=== PATIENT | male | born 1990 | race Caucasian/White ===

== ENCOUNTER 2021-06-06 13:29 | Emergency (ER) | payer MEDICAID ==
[2021-06-06] MEDS ORDERED: Bacitracin Oint 1 GM U/D Packet TOP ONE (13:43)
[2021-06-06] MEDS ORDERED: Diphtheria,Pertussis(Acell),Tetanus Vaccine 0.5 ML Syringe IM ONE (13:43)
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
== END 2021-06-06 13:56 | disposition home or self-care (01) ==
LOC: DL.ED 13:29
DX: S61.257A Open bite of left little finger without damage to nail, initial encounter (principal); Z23 Encounter for immunization; W50.3XXA Accidental bite by another person, initial encounter
CPT/HCPCS: 90471; 90715; 99282; 99283